=== PATIENT | female | born 1990 | race Caucasian/White ===

== ENCOUNTER 2022-02-22 14:28 | Outpatient (CLI) | payer BC | END 2022-02-22 14:29 | disposition home or self-care (01) | LOC: CSHULT 14:28 | PROVIDERS: ATTEND Internal Medicine Endocrinology, Diabetes & Metabolism | DX: E04.8 Other specified nontoxic goiter (principal); R22.0 Localized swelling, mass and lump, head | CPT/HCPCS: 76536 ==